=== PATIENT | male | born 1960 | race Caucasian/White ===

== ENCOUNTER 2020-08-22 10:08 | Emergency (ER) | payer OTHER ==
[~2020-08-22] VITALS: Ht 185.4 cm; Wt 72.6 kg
[~2020-08-22 10:08] MED LIST: EXEDRIN; IBUPROFEN; NORCO 5-325 TA1 EACH PO; ORAGEL; PENICILLIN VK250 MG PO
[2020-08-22 10:10] VITALS: BP 169/111
[2020-08-22] MEDS ORDERED: TOBRADEX ST EYE5 ML OPHTHALMIC (10:32)
== END 2020-08-22 10:41 | disposition home or self-care (01) ==
LOC: M.ERS 10:08
DX: H02.8 Other specified disorders of eyelid (principal)